=== PATIENT | male | born 1995 | race Caucasian/White ===

== ENCOUNTER 2016-10-10 19:31 | Emergency (ER) ==
[2016-10-10] MEDS ORDERED: TORADOL IM ONE (20:03)
[2016-10-10] MEDS ORDERED: NORFLEX IM ONE (20:03)
[2016-10-10] MEDS ORDERED: NORCO-10 PO ONE (20:04)
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
[2016-10-10 22:23] VITALS: BP 120/78
--- NOTE | 2016-10-10 22:28 | Diag Imaging Result Document ---
PROCEDURE NAME: HEAD/C-SPINE W/O CONTRAST - 10/10/2016 STUDY: CT brain without and cervical spine without. PROTOCOL: Dose reduction protocol. BRAIN: No parenchymal hemorrhage. No epidural or subdural hematoma. No subarachnoid hemorrhage. No skull fracture. No hydrocephalus. No sinus opacification. No air fluid levels. IMPRESSION: No hemorrhage. No injury. CERVICAL SPINE: There is mild scoliosis. Good alignment on the sagittal images. No precervical soft tissue swelling. No subluxation. No fracture. IMPRESSION: No acute bony injury. A preliminary report was given at 8:46 p.m.
--- NOTE | 2016-10-11 06:25 | Diag Imaging Result Document ---
PROCEDURE NAME: ELBOW COMPLETE LEFT - 10/10/2016 LEFT ELBOW THREE VIEWS: FINDINGS: No fracture. No dislocation. IMPRESSION: No acute bony injury.
--- NOTE | 2016-10-11 06:28 | Diag Imaging Result Document ---
PROCEDURE NAME: WRIST COMPLETE LEFT - 10/10/2016 LEFT WRIST THREE VIEWS: FINDINGS: No fracture. No dislocation. IMPRESSION: No acute bony injury.
--- NOTE | 2016-10-11 06:31 | Diag Imaging Result Document ---
PROCEDURE NAME: CHEST-2 VIEWS - 10/10/2016 FRONTAL AND LATERAL CHEST, TWO VIEWS: FINDINGS: The lungs are well expanded. No contusions or pneumothoraces. The mediastinum is not widened. No pleural effusions. No compressed vertebra. IMPRESSION: No injury.
--- NOTE | 2016-10-11 06:34 | Diag Imaging Result Document ---
PROCEDURE NAME: TRAUMA SHOULDER LEFT - 10/10/2016 LEFT SHOULDER, THREE VIEWS INCLUDING AXILLARY Y VIEW: FINDINGS: No separation at the acromioclavicular joint. No fracture. No dislocation. IMPRESSION: No acute bony injury
== END 2016-10-10 22:22 | disposition home or self-care (01) ==
LOC: P.ED 19:31
DX: S46.912A Strain of unspecified muscle, fascia and tendon at shoulder and upper arm level, left arm, initial encounter (principal); R51 Headache; M54.2 Cervicalgia; M79.1 Myalgia; R20.0 Anesthesia of skin; R20.2 Paresthesia of skin; M25.512 Pain in left shoulder; M25.412 Effusion, left shoulder; M79.602 Pain in left arm; V49.59XA Passenger injured in collision with other motor vehicles in traffic accident, initial encounter
CPT/HCPCS: 70450; 71020; 72125; 96372; J1885; J2360